=== PATIENT | female | born 2000 | race Caucasian/White ===

== ENCOUNTER 2022-12-19 08:18 | Emergency (ER) | payer OTHER, SELFPAY ==
--- NOTE | 2022-12-19 08:22 | ED.URI ---
HPI - URI/Sore Throat General Chief Complaint: Upper Respiratory Infection Stated Complaint: Sore Throat Discharge Plan Discharge Follow-up/Referrals: UNKNOWN,DOCTOR [Primary Care Provider] -
[2022-12-19 08:28] VITALS: BP 117/73; PULSE 88; RESP 14; TEMP 36.4; O2SAT 100
--- NOTE | 2022-12-19 08:31 | ED.URI ---
HPI - URI/Sore Throat General Chief Complaint: Upper Respiratory Infection Stated Complaint: Sore Throat Source: patient and RN notes reviewed History of Present Illness HPI Narrative: 22 yo F presents to urgent care with complaints of a sore throat and post nasal drip starting yesterday. Pt denies any fevers, chills, ear pain, N/V/D, chest pain, or SOB. Pt has taken Zyrtec and Tylenol at home. Related Data Allergies Allergy/AdvReac Type Severity Reaction Status Date / Time No Known Allergies Allergy Verified 12/19/22 08:32 Review of Systems Review of Systems: CONSTITUTIONAL: Denies fever, chills, or sweats. EYES: Denies visual changes, redness, or discharge. ENT:post nasal drip and sore throat CARDIOVASCULAR: Denies chest pain, palpitations, or edema. RESPIRATORY: Denies cough or dyspnea. GASTROINTESTINAL: Denies abdominal pain, nausea, vomiting, or diarrhea. GENITOURINARY: Denies dysuria or hematuria. SKIN: Denies rash or itching. MUSCULOSKELETAL: Denies back pain, joint pain, or myalgia. NEUROLOGIC: Denies headache, numbness, or weakness. Pertinent positives per HPI. PMFSH Comments At the time of my signature, I reviewed and agree with the nursing past medical, surgical, social, and family history. There is no relevant family history pertinent to the patient complaint. Exam Narrative: GENERAL: This is a well-nourished, well-developed patient, in no apparent distress. HEAD: normocephalic, atraumatic. EYES: Sclera clear/white. Vision is grossly intact. EARS: External ears normal, auditory canals clear and without drainage, TMs normal without perforation. Hearing grossly intact. NOSE: External nose normal with no obvious nasal discharge, nares without redness, no rhinorrhea. THROAT: Mucous membranes moist, posterior pharynx clear. NECK: Neck supple, non-tender without lymphadenopathy, masses or thyromegaly. CARDIOVASCULAR: Regular rate RESPIRATORY: No respiratory distress SKIN: warm, intact with no suspicious lesions or rash, good texture and turgor. NEURO: awake, alert, and oriented to person, place and time. There were no obvious focal neurologic abnormalities. EXTREMITIES: No clubbing, cyanosis, or edema. No joint tenderness, effusion, or edema noted. BACK: Nontender without deformity or crepitus. No flank tenderness. Course Course Level of Care: Express Care Visit Vital Signs Vital signs: Vital Signs Temperature 97.5 F L 12/19/22 08:28 Pulse Rate 88 12/19/22 08:28 Respiratory Rate 14 12/19/22 08:28 Blood Pressure 117/73 12/19/22 08:28 Pulse Oximetry 100 12/19/22 08:28 Oxygen Delivery Room Air 12/19/22 08:28 Temperature 97.5 F L 12/19/22 08:33 Pulse Rate 88 12/19/22 08:33 Respiratory Rate 14 12/19/22 08:33 Blood Pressure 117/73 12/19/22 08:33 Pulse Oximetry 100 12/19/22 08:33 Oxygen Delivery Room Air 12/19/22 08:33 Reviewed MDM - URI/Sore Throat MDM Narrative Medical decision making narrative: After 24 hours on antibiotics throw tooth brush away and start using a new one. Increase your Vitamin C. Do not share drinks. Take Motrin alternating with Tylenol for pain and/or fever alternating every 4 hours. Increase fluids, avoid caffeine. Take a probiotic daily or eat a low sugar yogurt while taking the antibiotic. Follow up with Primary provider if not getting better this week Differential Diagnosis Differential diagnosis: Likely upper respiratory infection, viral infection and pharyngitis Lab Data Attestation: I reviewed the patient's lab results. Critical Care Time Critical Care Time Critical Care Time: No Discharge Plan Discharge Clinical Impression: Pharyngitis Qualifiers: Pharyngitis/tonsillitis etiology: streptococcus Qualified Code(s): J02.0 - Streptococcal pharyngitis Patient Disposition: Home, Self-Care Condition: Stable Instructions: Antibiotic Form, Strep Throat (DC) Additional Instructions: After 24 hours on ant
[2022-12-19 08:33] VITALS: BP 117/73; PULSE 88; RESP 14; TEMP 36.4; O2SAT 100
== END 2022-12-19 08:47 | disposition home or self-care (01) ==
PROVIDERS: Emergency Provider Nurse Practitioner Family
DX: J02.0 Streptococcal pharyngitis (principal)
CPT/HCPCS: 87880; 99203; G0463

== ENCOUNTER 2024-01-03 09:42 | Emergency (ER) | payer OTHER, SELFPAY ==
--- NOTE | ~2024-01-03 | XR_ITS ---
XR knee LT min 4V Ordering provider: JOSLYN Johnson History: . gen pain x 2 days. No injury/trauma . Comparison: None. FINDINGS: BONES: No acute fracture or dislocation. JOINT SPACES: Normal. SOFT TISSUES: Normal. IMPRESSION: No acute osseous abnormality left knee. Reviewed, dictated and finalized at location A.
[2024-01-03 09:47] VITALS: BP 112/67; PULSE 87; RESP 16; TEMP 36.8; O2SAT 99
--- NOTE | 2024-01-03 10:26 | ED.LOWEXIN ---
HPI - Extremity Injury (Lower) General Chief Complaint: Extremity Injury, Lower Stated Complaint: Left Knee Pain Time Seen by Provider: 01/03/24 10:19 Source: patient and RN notes reviewed Mode of arrival: ambulatory Limitations: no limitations History of Present Illness HPI Narrative: Patient presents today complaining of a 2 day history of left knee pain with popping with ambulation. Denies injury or trauma. Denies numbness or tingling. Currently rates her pain 6/10 and has been using a home brace, ice, and Tylenol and ibuprofen with mild short-term relief. Related Data Home Medications Medication Instructions Recorded Confirmed Otc Iron 01/03/24 Allergies Allergy/AdvReac Type Severity Reaction Status Date / Time No Known Allergies Allergy Verified 01/03/24 09:59 Review of Systems Review of Systems: CONSTITUTIONAL: Denies body aches, fever, chills, or sweats. EYES: Denies visual changes, redness, or discharge. ENT: Denies rhinorrhea, congestion, sore throat, or otalgia. CARDIOVASCULAR: Denies chest pain, palpitations, or edema. RESPIRATORY: Denies cough or dyspnea. GASTROINTESTINAL: Denies abdominal pain, nausea, vomiting, or diarrhea. GENITOURINARY: Denies dysuria or hematuria. SKIN: Denies rash, itching, or wounds. MUSCULOSKELETAL: Denies back pain, or myalgia.+ left knee pain NEUROLOGIC: Denies headache, numbness, tingling, or weakness. PSYCH: Denies depression or anxiety. PMFSH Comments At time of signature, I have reviewed and agree with nursing past medical, surgical, social and family history unless otherwise noted. Please see nursing chart for further information. There is no relevant family history pertinent to the presenting complaint Exam Narrative: GENERAL: Well-appearing, well-nourished, and in no acute distress. HEAD: Normocephalic, atraumatic. EYES: EOMI. No redness or drainage. Conjunctivae normal. ENT: Mucous membranes pink and moist. NECK: Normal AROM. CHEST: No respiratory distress. EXTREMITIES: Left knee: Pain with palpation of the patella. Pain with AROM in all directions. No tenderness to the lateral and medial joint line as well as posterior knee. No edema, effusions, ecchymosis, erythema noted. Distal sensation intact. Capillary refill normal. Pedal pulse normal. SKIN: Warm, dry, no rash. Capillary refill normal. Normal skin turgor. NEURO: No focal deficits. Alert and oriented x3. Gait steady. PSYCH: Normal affect. No signs of depression or anxiety. Course Course Level of Care: Express Care Visit Vital Signs Vital signs: Vital Signs Temperature 98.3 F 01/03/24 09:47 Pulse Rate 87 01/03/24 09:47 Respiratory Rate 16 01/03/24 09:47 Blood Pressure 112/67 01/03/24 09:47 Pulse Oximetry 99 01/03/24 09:47 Oxygen Delivery Room Air 01/03/24 09:47 Temperature 98.3 F 01/03/24 09:47 Pulse Rate 87 01/03/24 09:47 Respiratory Rate 16 01/03/24 09:47 Blood Pressure 112/67 01/03/24 09:47 Pulse Oximetry 99 01/03/24 09:47 Oxygen Delivery Room Air 01/03/24 09:47 Reviewed MDM - Extremity Injury (Lower) MDM Narrative Medical decision making narrative: X-ray is negative. Recommend rest, NSAIDs, ice, with PCP or orthopedic follow-up if symptoms do not improve. Patient agrees with plan. Anticipatory guidance given. Differential Diagnosis Differential diagnosis: Likely other (Tendinitis, bursitis, arthritis, ligamentous injury, meniscus injury) Imaging Data Radiologist's impression: ITS Impressions Knee X-Ray 01/03/24 11:10 IMPRESSION: No acute osseous abnormality left knee. Critical Care Time Critical Care Time Critical Care Time: No Discharge Plan Discharge Clinical Impression: Acute pain of left knee Patient Disposition: Home, Self-Care Condition: Stable Instructions: Knee Pain (ED) Additional Instructions: Your x-ray is negative today. Rest, ice, and take an
== END 2024-01-03 11:23 | disposition home or self-care (01) ==
PROVIDERS: Emergency Provider Nurse Practitioner
DX: M25.562 Pain in left knee (principal)
CPT/HCPCS: 73564; 99213; G0463

== ENCOUNTER 2024-03-20 17:28 | Emergency (ER) | payer OTHER, SELFPAY ==
[2024-03-20 17:33] VITALS: BP 110/74; PULSE 119; RESP 16; TEMP 37.7; O2SAT 97
--- NOTE | 2024-03-20 18:17 | ED_ITS ---
HPI - URI/Sore Throat General Chief Complaint: Upper Respiratory Infection Stated Complaint: Cough Time Seen by Provider: 03/20/24 17:50 Source: patient, RN notes reviewed and old records reviewed Mode of arrival: ambulatory Limitations: no limitations History of Present Illness HPI Narrative: 23 year old female who presents to [facility] care with complaints of cough with some intermittent fevers up to 102.6F with some nasal congestion last week with complaints of lingering cough. Patient reports that she hashd some low grade fevers since Saturday with the lingering cough and continues to have some nasal congestion with drainage. Patient reports that cough tends to be worse at night. Patient reports that she has taken some Tylenol and Ibuprofen and has tried some OTC cough medication without improvement. 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 MD elicited complaint: fever, cough, rhinorrhea and nasal congestion Onset (ago): week(s) (1.5 ) Severity: moderate Able to tolerate fluids by mouth: Yes Treatments prior to arrival: acetaminophen, ibuprofen and other (cough syrup) Related Data Home Medications ?Medication ?Instructions ?Recorded ?Confirmed ?Last Taken ?Type Otc Iron 01/03/24 Unknown History Allergies Allergy/AdvReac Type Severity Reaction Status Date / Time No Known Allergies Allergy Verified 01/03/24 09:59 Review of Systems Review of Systems: CONSTITUTIONAL: reports malaise, chills, sweats, or fever. EYES: Denies visual changes, redness, or discharge. ENT: Reports rhinorrhea, congestion, sinus pain, no otalgia and no sore throat. CARDIOVASCULAR: Denies chest pain, palpitations, or edema. RESPIRATORY: Reports lingering cough.? Denies dyspnea. GASTROINTESTINAL: Denies abdominal pain, nausea, vomiting, diarrhea SKIN: Denies rash or itching. MUSCULOSKELETAL: Denies myalgia. NEUROLOGIC: reports some frontal headache. All systems reviewed & are unremarkable except as noted in HPI and below PMFSH Past Medical History Medical History (Updated 03/22/24 @ 21:24 by Rizwana Denis NP) Anemia Social History Social History (Updated 03/22/24 @ 21:26 by Rizwana Denis NP) Smoking status: Never smoker Alcohol intake: current Alcohol use details: social Substance use type: does not use Living arrangements: with family Additional occupation/education comments: works in day care setting Gender identity (if verbalized by the patient): Female Comments At time of signature, agree with nursing past medical, surgical, social and family history. There is no relevant family history pertinent to the presenting complaint Exam 2 Narrative: GENERAL: ill-appearing, well-nourished,pale and in no acute distress. HEAD: Normocephalic EYES: PERRLA, conjunctivae clear ENT: Nares clear, turbinates edematous and erythematous, clear discharge. Mucous membranes moist. TM pearly avila with dull light reflex bilaterally; no tragal tenderness. Oropharynx erythematous without lesions. Tonsils not enlarged and without exudate, no drooling, no hoarseness, no trismus, uvula midline.post nasal drainage NECK: Supple. No lymphadenopathy CHEST: Clear to auscultation, breath sounds equal. No wheezing, rhonchi, rales, or stridor. No respiratory distress, speaks in full sentences.cough noted SAO2 97% on room air HEART: Regular rate and rhythm. No murmur heard. SKIN: Warm, dry, no rash. NEURO: Alert and oriented x3. PSYCH: Normal mood and affect Course Course Emergency Course: Patient is aware of diagnosis, understands and agrees to treatment plan.? Anticipatory guidance given.? Patient agrees to follow-up as directed and is aware of reasons to seek care at the emergency department. Portions of this record may have been created with voice recognition software Level of Care: Express Care Visit Vital Signs Vital signs: Vital Signs Temperature 37.7 C H 03/20/24 17:33 Pulse Rate 119 H 03/20/24 17:33 Respiratory Rate 16 03/20/24 17:33 Blood Pressure 110/74 03/20/24 17:33 Pulse Oximetry 97 03/20/24 17:33 Oxygen Delivery Room Air 03/20/24 17:33 Temperature 37.7 C H 03/20/24 17:33 Pulse Rate 119 H 03/20/24 17:33 Respiratory Rate 16 03/20/24 17:33 Blood Pressure 110/74 03/20/24 17:33 Pulse Oximetry 97 03/20/24 17:33 Oxygen Delivery Room Air 03/20/24 17:33 Reviewed MDM - URI/Sore Throat MDM Narrative Medical decision making narrative: Differential diagnosis considered: Bro virus, strep pharyngitis, allergic rhinitis, upper respiratory tract infection, sinusitis, rhinosinusitis, nasopharyngitis. viral pharyngitis, otitis media, otitis externa, pneumonia, bronchitis, viral cough syndrome, viral syndrome, and influenza.? Exam findings show no acute concerns or changes; patient is non-toxic appearing and is in no distress.? Patient is appropriate for outpatient treatment and follow-up. Differential Diagnosis Differential diagnosis: Likely upper respiratory infection, sinusitis, viral i nfection and other (acute cough) Medical Records Attestation: I reviewed the patient's medical records. Lab Data Attestation: I reviewed the patient's lab results. Critical Care Time Critical Care Time Critical Care Time: No Discharge Plan Discharge Clinical Impression: Sinusitis Qualifiers: Sinusitis location: pansinusitis Chronicity: acute Recurrence: non-recurrent Qualified Code(s): J01.40 - Acute pansinusitis, unspecified Cough Qualifiers: Cough type: acute Qualified Code(s): R05.1 - Acute cough Patient Disposition: Home, Self-Care Condition: Stable Instructions: Antibiotic Form, Sinusitis (ED), Acute Cough (ED) Additional Instructions: Increase fluids especially juices and water Vrpj-wne-aguexef cough and cold medicine of your choice for your symptoms Zyrtec, Claritin,or Gail Steroids as directed--take with food heat to the face 20-30 minutes 4-6 times a day for pain Salt water gargles, throat lozenges or throat sprays as desired Antibiotic as directed--finished the medication If your symptoms persist, change or worsen significantly before you can contact your personal physician then please, without delay, go to the emergency department for further evaluation. Follow-up with PCP in 7-10 days or sooner if needed Follow up with PCP soon in regards to your blood pressure which is elevated above threshold for referral. Blood pressure above 120/80 may indicate pre- hypertension. Patient Language: Citizen Of [place] Prescriptions: New amoxicillin-pot clavulanate 875-125 mg tablet 1 tablet PO Q12H Qty: 20 0RF Rx Instructions: take medication as ordered with food, take with probiotic or eat activa yogurt while on this medication prednisone 20 mg tablet 20 mg PO BID Qty: 10 0RF No Action Otc Iron Follow-up/Referrals: PHYSICIAN,ECONOMIST RESEARCH ASSISTANT [Primary Care Provider] - Time of Disposition: 18:22 Quality Hondo Coma Scale Eyes: Open Verbal: Oriented and Alert Motor: Follows Commands Hondo Coma Total Score: 15
--- OUTSIDE RECORDS SUMMARY | 2024-03-24 10:38 | XMS_ITS | Referral Summary ---
Author Organization [facility] [address] Address [address] [place] [address] Phone Care Team Providers Care Linux Administrator Name Role Phone No, Physician Primary Care Provider [phone] Allergies No known active allergies Medications silver sulfadiazine (SILVADENE, SSD) 1 % cream Apply topically daily Active Active Problems Problem Noted Date Diagnosed Date Annual physical exam 07/27/2022 Assessment & Plan (07/27/2022 1:32 PM CDT): Doing well. BMI:23 Routine labs ordered - Varicella titer Preventative Screening Due: N/a Dietary and exercise recommendations given today. Recommend exercise at least 30 minutes moderate to vigorous exercise and some strength training most days of the week. (minimum 150 minutes weekly) Discussed MyPlate recommendations and increasing fruits and vegetables Age appropriate counseling provided - Safe sex practices, Seat belt use, alcohol/drug avoidance Vaccines due - HPV RTC annually for f/u Social History Tobacco Use Types Packs/Day Years Used Date Smoking Tobacco: Never Smokeless Tobacco: Never Tobacco Cessation:Counseling Given: Not Answered AUDIT-C Answer Date Recorded Q1: How often do you have a drink containing alc ohol? Never 07/27/2022 Average Number of Drinks Not on file 023 Frequency of Binge Drinking Not on file 07/08 PHQ-2 Answer Date Recorded PHQ-2 Total Score (If total score is 3 or more points, staff should administer the PHQ-9) 0 07/27/2022 Personal Safety Answer Date Recorded Getting School Help Needed Not on file 06/08 Comments Unknown Sex and Gender Information Value Date Recorded Sex Assigned at Not on file Legal Sex Female 1:09 PM CDT Gender Identity Not on file Sexual Orientation Not on file Last Filed Vital Signs Vital Sign Reading Time Taken Comments Blood Pressure 102/80 07/27/2022 1:09 PM CDT Pulse 91 07/27/2022 1:09 PM CDT Temperature 36.4 ??C (97.5 ??F) 07/27/2022 1:09 PM CD T Respiratory Rate 16 07/27/2022 1:09 PM CDT Oxygen Saturation 99% 07/27/2022 1:09 PM CDT Inhaled Oxygen Concentration - - Weight 58.8 kg (129 lb 9.6 oz) 07/27/2022 1:09 P M CDT Height 160 cm (5' 3 ) 07/27/2022 1:09 PM CDT Body Mass Index 22.96 07/27/2022 1:09 PM CDT Plan of Treatment Not on file Insurance [facility] Care Teams Linux Administrator Relationship Specialty Start Date End Date No, Physician PCP - General 06/19/22
--- OUTSIDE RECORDS SUMMARY | 2024-03-24 10:38 | XMS_ITS | Encounter Summary ---
Author Organization [facility] Address [address] [place] [id number] Care Team Providers Care Power Line Installer Name Role Phone No, Physician Primary Care Provider [phone] Reason for Visit * Reason Comments New Patient Encounter Details Date Type Department Care Team (Late st Contact Info) Description 07/27/2022 1:00 PM CDT Office Visit [facility] [address] [place] [id number] Katherine Meléndez MD [address] [address] Annual physical exam (Primary Dx); Immunity status testing Social History Tobacco Use Types Packs/Day Years [...] staff should administer the PHQ-9) 0 07/27/2022 Comments Unknown Sex and Gender Information Value Date Recorded Sex Assigned at Not on file Legal Sex Female 1:09 PM CDT Gender Identity Not on file Sexual Orientation Not on file documented as of this encounter Last Filed Vital Signs Vital Sign Reading [...] Mass Index 22.96 07/27/2022 1:09 PM CDT documented in this encounter Patient Instructions * Patient Instructions* Katherine Meléndez MD - 07/27/2022 1:00 PM CDT Order varicella titer Vaccines - Meningococcal B, HPV documented in this encounter Progress Notes * Katherine Meléndez MD - 07/27/2022 1:00 PM CDT Images from the original note were not included. Patient ID: Bandar Bonds is a 21 y.o. female. Chief Complaint. Chief Complaint Patient presents with New Patient HPI. Patient is a 21 y.o. female HPI Patient is here for annual wellness check. Chronic issues:None Tobacco use: None Alcohol: None Diet:Mostly eats what she wants. Water and soda. Exercise: None Mammo:N/A Pap:N/A C scope:N/A Patient has never been sexually active History reviewed. No pertinent past medical history. History reviewed. No pertinent surgical history. No Known Allergies Social History Tobacco Use Smoking status: Never Smokeless tobacco: Never Substance and Sexual Activity Drug use: Not Currently Sexual activity: None Alcohol Use: Not At Risk (07/27/2022) AUDIT-C Frequency of Alcohol Consumption: Never Average Number of Drinks: Not on file Frequency of Binge Drinking: Not on file History reviewed. No pertinent family history. Current Medications: Outpatient Encounter Medications as of 07/27/2022 Medication Sig Dispense Refill silver sulfadiazine (SILVADENE, SSD) 1 % cream Apply topically daily No facility-administered encounter medications on file as of 07/27/2022. Review of Systems Constitutional: Negative for chills and fever. HENT: Negative for hearing loss and sore throat. Eyes: Negative for visual disturbance. Respiratory: Negative for shortness of breath and wheezing. Cardiovascular: Negative for chest pain. Gastrointestinal: Negative for abdominal pain, constipation, diarrhea, nausea and vomiting. Genitourinary: Negative for dysuria. Skin: Negative for rash. Neurological: Negative for headaches. BP 102/80 (BP Location: Left arm, Patient Position: Sitting) Pulse 91 Temp 36.4 ??C (97.5 ??F) Resp 16 Ht 160 cm (5' 3 ) Wt 58.8 kg (129 lb 9.6 oz) SpO2 99% BMI 22.96 kg/m?? Physical Exam Vitals reviewed. Constitutional: General: She is not in acute distress. Appearance: Normal appearance. HENT: Head: Normocephalic and atraumatic. Cardiovascular: Rate and Rhythm: Normal rate and regular rhythm. Pulses: Normal pulses. Heart sounds: Normal heart sounds. No murmur heard. Pulmonary: Breath sounds: Normal breath sounds. No wheezing. Musculoskeletal: Cervical back: Normal range of motion and neck supple. Skin: General: Skin is warm and dry. Neurological: Mental Status: She is alert. Psychiatric: Mood and Affect: Mood normal. No results found for any previous visit. There is no immunization history on file for this patient. Spent up to (25 mins) preparing to see the patient (e.g., review of test), obtaining and or reviewing separately obtained history, performing a medically appropriate exam examination and evaluation, counseling and educating the patient, ordering medications, tests, along with documenting clinical in formation in the electronic health record, independently interpreting results and communicating results to the patient. RTC in ( 12 months) Assessment & Plan: Diagnoses and all orders for this visit: Annual physical exam (Primary) Assessment & Plan: Doing well. BMI:23 Routine labs ordered - [...] due - HPV RTC annually for f/u Katherine Meléndez MD documented in this encounter Miscellaneous Notes * Assessment & Plan Note - Katherine Meléndez MD - 07/27/2022 1:30 PM CDT Associated Problem(s): Annual physical exam Doing well. BMI:23 Routine labs ordered - [...] due - HPV RTC annually for f/u documented in this encounter Plan of Treatment Not on file documented as of this encounter Visit Diagnoses Diagnosis Annual physical exam- Primary Routine general medical examination at a health care facility Immunity status testing Antibody response examination documented in this encounter Historical Medications * This list may reflect changes made after this encounter. silver sulfadiazine (SILVADENE, SSD) 1 % cream Apply topically daily added in this encounter Care Teams Power Line Installer Relationship Specialty Start Date End Date No, Physician PCP - General 06/19/22 documented as of this encounter
--- OUTSIDE RECORDS SUMMARY | 2024-03-24 10:38 | XMS_ITS | Encounter Summary ---
Author Organization [facility] Address [address] [place] [address] Phone Care Team Providers Care Building Illuminating Engineer Name Role Phone Gris Hamilton Primary Care Pro vider Reason for Referral * PT/OT/ST (Routine) - Canceled Specialty Diagnoses / Procedures Referred By Contandrew t Referred To Contact Physical Therapy Diagnoses Left knee pain, unspecified chronicity Gris Hamilton, WALLY [address] [place] [address] Phone: tel: fax: Referral ID Status Reason Start Date Expiration Date V isits Requested Visits Authorized [id number] Canceled 01/06/2024 50 50 Scheduling Instructions Reason for Visit * Reason Comments New Patient Preventive Care Knee Pain Started saturday wa s popping , urgent care Saturday , [facility] facility Encounter Details Date Type Department Care Team (Late st Contact Info) Description 01/06/2024 2:15 PM CDT Office Visit [facility] - Internal Medicine - [place] [address] [place] [address] Gris Hamilton PAC [address] [place] [address] Left knee pain, unspecified chronicity (Primary Dx); Well adult exam Discharge Disposition: Discharged to home or Selfcare Social History Tobacco Use Types Packs/Day Years Used Date Smoking Tobacco: Never Smokeless Tobacco: Never Tobacco Cessation:Counseling Given: No Alcohol Use Standard Drinks/Week Comments Not Currently 0 (1 standard drink = 0.6 oz pur e alcohol) [facility] Utilities Answer Date Recorded In the past 12 months has th e electric, gas, oil, or water company threatened to shut off services in your home? No 01/06/2024 Social Connection and Isolat ion Panel [NHANES] Answer Date Recorded In a typical week, how many times do you talk on the phone with family, friends, or neighbors? Once a week 01/06/2024 How often do you get togethe r with friends or relatives? More than three times a week 01/06/2024 How often do you attend chur ch or gnosticist services? Never 01/06/2024 Do you belong to any clubs o r organizations such as pentecostalism groups, unions, fraternal or athletic groups, or school groups? No 01/06/2024 How often do you attend meet ings of the clubs or organizations you belong to? Never 01/06/2024 Are you , , di vorced, , never , or living with a partner? Never 01/06/2024 AUDIT-C Answer Date Recorded Q1: How often do you have a drink containing alcohol? Never 01/06/2024 Q2: How many drinks containi ng alcohol do you have on a typical day when you are drinking? Patient does not drink Q3: How often do you have si x or more drinks on one occasion? Never 01/06/2024 Overall Financial Resource Strain (CARDIA) Answe r Date Recorded How hard is it for you to pa y for the very basics like food, housing, medical care, and heating? Not hard at all 01/06/2024 PHQ-2 Answer Date Recorded Total Score - Questions 1-9 0 12/09 [facility] [place] of Occupat ional Health - Occupational Stress Questionnaire Answer Date Recorded Do you feel stress - tense, restless, nervous, or anxious, or unable to sleep at night because your mind is troubled all the time - these days? Not at all 01/06/2024 Exercise Vital Sign Answer Date Recorde d On average, how many days pe r week do you engage in moderate to strenuous exercise (like a brisk walk)? 0 days Minutes of Exercise per Session Not on file 01/06/2024 Hunger Vital Sign Answer Date Recorded Within the past 12 months, y ou worried that your food would run out before you got the money to buy more. Never true 01/06/20 Within the past 12 months, t he food you bought just didn't last and you didn't have money to get more. Never true 01/06/2024 PRAPARE - Transportation Answer Date Re corded In the past 12 months, has l ack of transportation kept you from medical appointments or from getting medications? No 12/09 In the past 12 months, has l ack of transportation kept you from meetings, work, or from getting things needed for daily living? No 01/06/2024 Housing Stability Vital Sign Answer Farshad e Recorded In the last 12 months, was t here a time when you were not able to pay the mortgage or rent on time? Patient declined 01/06/20 In the past 12 months, how m any times have you moved where you were living? 0 01/06/2024 At any time in the past 12 m [facility], were you homeless or living in a senior living (including now)? 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 Gender Identity Not on file Sexual Orientation Not on file documented as of this encounter Last Filed Vital Signs Vital Sign Reading Time Taken Comments Blood Pressure 104/70 01/06/2024 2:39 PM CDT Pulse 88 01/06/2024 2:39 PM CDT Temperature 36.6 ??C (97.8 ??F) 01/06/2024 2:39 PM CD T Respiratory Rate 12 01/06/2024 2:39 PM CDT Oxygen Saturation 99% 01/06/2024 2:39 PM CDT Inhaled Oxygen Concentration - - Weight 63.5 kg (140 lb) 01/06/2024 2:39 PM CDT Height - - Body Mass Index 27.34 07/28/2022 5:23 PM CDT documented in this encounter Functional Status * Audit-C Score Answer Date of Assessment Author 0 01/06/2024 1:56 PM CDT [facility] [place] [facility] * Within the last year, have you been humiliated or emotionally abused in other ways by your partner or ex-partner? Answer Date of Assessment Author No 01/06/2024 1:56 PM CDT [facility], [facility] [place] [facility] * Within the last year, have you been afraid of your partner or ex-partner? Answer Date of Assessment Author No 01/06/2024 1:56 PM CDT [facility], [facility] [place] [facility] * Within the last year, have you been raped or forced to have any kind of sexual activity by your partner or ex-partner? Answer Date of Assessment Author No 01/06/2024 1:56 PM CDT [place], [facility] [place] [facility] * Within the last year, have you been kicked, hit, slapped, or otherwise physically hurt by your partner or ex-partner? Answer Date of Assessment Author No 01/06/2024 1:56 PM CDT [facility], [facility] [place] [facility] * Q1: How often do you have a drink containing alcohol? Answer Date of Assessment Author Never 01/06/2024 1:56 PM CDT [facility], [facility] [place] [facility] * Q2: How many drinks containing alcohol do you have on a typical day when you are drinking? Answer Date of Assessment Author Patient does not drink 01/06/2024 1:56 PM CDT [facility], [facility] [place] [facility] * Q3: How often do you have six or more drinks on one occasion? Answer Date of Assessment Author Never 01/06/2024 1:56 PM CDT [facility], [facility] [place] [facility] * Question Answer Date of Assessment Author Little interest or pleasure in doing things Not at all 01/06/2024 2:38 PM CDT Kate Kate RMA Feeling down, depressed, or hopeless Not at all 01/06/2024 2:38 PM CDT Kate Kate RMA * Over the past 2 weeks, how often have you been bothered by any of the following problems? Question Answer Date of Assessment Author Patient Health Questionnaire -2 Score 0 01/06/2024 2:38 PM CDT Kate Kate RMA documented as of this encounter Patient Instructions * Attachments The following attachments cannot be sent through Care Everywhere. * Preventive Care 21-39 Years Old Female (Nigerian) documented in this encounter Progress Notes * Kate Kate RMA - 01/06/2024 2:15 PM CDT Bandar Bonds, 23 y.o., female is here for New Patient, Preventive Care, and Knee Pain (Startedsaturday was popping , urgent care Saturday , [facility] facility ) Medication Refills: Patient reports/denies need for medication refills. Orders Pended: no Requested Prescriptions No prescriptions requested or ordered in this encounter Home Medications Medication Sig Start Date End Date Taking? Authorizing Provider Ferrous Sulfate (IRON PO) Take by mouth. Yes Provider, MD Uli There are no discontinued medications. I have reviewed the home medication list with the patient and have reconciled discrepancies. The list is accurate to the best of my knowledge. Smoking Status: Social History Tobacco Use Smoking status: Never Smokeless tobacco: Never Vaping Use Vaping status: Never Used Substance Use Topics Alcohol use: Not Currently Drug use: Never Smoking Cessation Counseling Given: no Health Care Maintenance: Health Maintenance Due Topic Date Due Hepatitis C Virus (HCV) Screening Never done Hepatitis B Immunization (3 of 3 - 3-dose series) 07/13/2003 Meningococcal B Immunization (1 of 2 - Patient Seeks Protection) Never done Influenza Immunization (1) 12/08/2023 SARS-COV-2 Immunization ( season) Never done Pap Smear 11/16/2023 Orders Pended: no The following BPA's have been addressed with the patient today: BMI, Smoking, Depression, Fall Risk, and Nutrition * Gris Hamilton PAC - 01/06/2024 2:15 PM CDT Chief Complaint: Chief Complaint Patient presents with New Patient Preventive Care Knee Pain Started saturday was popping , urgent care Saturday , [facility] facility Assessment/Plan: Diagnoses and all orders for this visit: Left knee pain, unspecified chronicity - PHYSICAL THERAPY REFERRAL; Future Well adult exam - CMP (COMPREHENSIVE METABOLIC PANEL); Future - COMPLETE BLOOD COUNT (CBC) WITH DIFF; Future - HEMOGLOBIN A1C W/ ESTIMATED GLUCOSE; Future - LIPID PANEL; Future - THYROID STIMULATING HORMONE (TSH); Future Other orders - Ferrous Sulfate (IRON PO); Take by mouth. PT eval and treat Get Froylan xray results NSAIDS as needed; advised Aleve Ok to continue brace PRN Avoid aggravating activities F/u in 4-6 wks after PT Future consideration for MRI or ortho Preventive care d/w pt Labs when fasting Yearly well exams Subjective: Ms. Bandar Bonds is a 23 y.o. female here today for above. 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 VITAL SIGNS: BP Readings from Last 3 Encounters: 01/06/24 104/70 07/28/22 113/74 07/25/22 111/70 Wt Readings from Last 3 Encounters: 01/06/24 140 lb (63.5 kg) 07/28/22 139 lb 15.9 oz (63.5 kg) (69%, Z= 0.51)* 07/25/22 140 lb (63.5 kg) (69%, Z= 0.51)* * Growth percentiles are based on [facility] (Girls, 2-20 Years) data. Vitals: 01/06/24 1439 BP: 104/70 BP Location: Left Arm BP Position: Sitting BP Cuff Size: Regular Pulse: 88 Resp: 12 Temp: 97.8 ??F (36.6 ??C) TempSrc: Temporal SpO2: 99% Weight: 140 lb (63.5 kg) Body mass index is 27.34 kg/m??. PHYSICAL EXAM: Physical Exam Vitals reviewed. Constitutional: Appearance: Normal appearance. HENT: Head: Normocephalic and atraumatic. Right Ear: Tympanic membrane normal. Left Ear: Tympanic membrane normal. Nose: Nose normal. Mouth/Throat: Mouth: Mucous membranes are moist. Eyes: Extraocular Movements: Extraocular movements intact. Cardiovascular: Rate and Rhythm: Regular rhythm. Heart sounds: Normal heart sounds. Pulmonary: Breath sounds: Normal breath sounds. Abdominal: General: Bowel sounds are normal. Palpations: Abdomen is soft. Musculoskeletal: General: Normal range of motion. Comments: Pain with ROM of the L knee medial, lateral, and patellar Normal strength APRIL DTRs 2/4 Sens grossly intact No deformity noted Skin: General: Skin is warm. Neurological: General: No focal deficit present. Mental Status: She is alert. Mental status is at baseline. Psychiatric: Mood and Affect: Mood normal. Labs/Studies Reviewed: No results found for: WBC , HEMOGLOBIN , HEMATOCRIT , PLATELETCNT , MCV No results found for: SODIUM , POTASSIUM , CHLORIDE , CO2VEN , ANIONGAP , GLUCOSE , BUN , CREATININE , BCRATIO8 , TOTALPROTEIN , ALBUMIN , AGRATIO , CALCIUM , TBIL , SGOTAST , SGPTALT , ALKALINEPHO , GFRNA , GFRA No results found for: TSH No results found for: HGBA1C No results found for: CHOLESTEROL , TRIGLYCRIDES , HDLCHOLESTE , LDL No results found for: PSASCREEN , PSA , PSAFREE , PSAPCNTFREE , PSATOTAL @MAMMOFINDINGS@ No results found. Recent Procedure Details No resulted procedures found. FOLLOWUP: Follow-up Information Return in about 4 weeks (around 02/03/2024) for Acute symptom check. LOS Today OFFICE/OP NEW LVL 4 MOD MDM/45-59 MIN Past medical, surgical, social and family history has been reviewed and updated as necessary. Medications and allergies has been reviewed and updated. I discussed all new medications and potential side effects or risks associated with them. Patient is to contact our office with any concerns. Patient instructions and educational materials were given to the patient. Patient (or patient territory sales representative) demonstrates verbal understanding of instructions given. Patient should follow up with their PCP for general health maintenance needs. Patient should contact our office if their problems persist or call 911/go the to ER if issues become more persistent. If any referrals have been made, patient should contact our office with in 3-5 days if they have not heard anything from our referral team or the referring physician. documented in this encounter Plan of Treatment Scheduled Orders Name Type Priority Associated Diagnoses Orde r Schedule CMP (COMPREHENSIVE METABOLIC PANEL) Lab Routine Well adult exam Expected: 02/05/2024 (Approximate), Expires: 04/07/2024 COMPLETE BLOOD COUNT (CBC) WITH DIFF Lab Routine Well adult exam Expected: 02/05/2024 (Approximate), Expires: 04/07/2024 HEMOGLOBIN A1C W/ ESTIMATED GLUCOSE Lab Routine Well adult exam Expected: 02/05/2024 (Approximate), Expires: 04/07/2024 LIPID PANEL Lab Routine Well adult exam Expected: 02/05/2024 (Approximate), Expires: 04/07/2024 THYROID STIMULATING HORMONE (TSH) Lab Routine Well adult exam Expected: 02/05/2024 (Approximate), Expires: 04/07/2024 Scheduled Referrals Name Type Priority Associated Diagnoses Orde r Schedule PHYSICAL THERAPY REFERRAL Outpatient Referral Routine Left knee pain, unspecified chronicity Expected: 01/06/2024, Expires: 01/05/2025 documented as of this encounter Visit Diagnoses Diagnosis Left knee pain, unspecified chronicity- Primary Well adult exam Routine general medical examination at a health care facility documented in this encounter Additional Health Concerns Assessment Noted Time PHQ-9 Depression Total Score: 0 01/06/20 24 2:38 PM CDT documented as of this encounter Care Teams Building Illuminating Engineer Relationship Specialty Start Date End Date Gris Hamilton PAC [address] [place] [address] PCP - General Physician Bankruptcy Paralegal 01/06/24 documented as of this encounter
--- OUTSIDE RECORDS SUMMARY | 2024-03-24 10:38 | XMS_ITS | Clinical Summary ---
Author Organization [facility] [address] Address [address] [place] [address] Phone Care Team Providers Care Customer Account Representative Name Role Phone No, Physician Primary Care Provider [phone] Allergies No known active allergies Medications silver [...] on file Sexual Orientation Not on file Obstetrics History Last Filed Vital Signs Vital Sign Reading [...] 07/27/2022 1:09 PM CDT Plan of Treatment Health Maintenance Due Date Last Done Comments Cervical Cancer Screening 2002 Hepatitis C Screening 2002 Varicella Vaccines (1 of 2 - 13+ 2-dose series) 11/16/2015 HPV Vaccines (1 - 3-dose series) 2017 Meningococcal B Vaccine (1 o f 2 - Patient Seeks Protection) 2018 Hepatitis B Screening 2020 Depression Screening 07/28/2023 07/27/2022 Regular Well Visit/Exam 18-64 07/28/2023 07/27/2022 Influenza Vaccine (#1) 2023 DTaP/Tdap/Td Vaccine (2 - Td or Tdap) 07/25/2032 07/25/2022 Meningococcal Vaccine Aged Out No johanna jamil eligible based on patient's age to complete this topic Pneumococcal vaccine <65 Aged Out No longer eligible based on patient's age to complete this topic Insurance [facility] Care Teams Customer Account Representative Relationship Specialty Start Date End Date No, Physician PCP - General 06/19/22
--- OUTSIDE RECORDS SUMMARY | 2024-03-24 10:38 | XMS_ITS | Encounter Summary ---
Author Organization [employer] Care Team Providers Care Program Paraprofessional Name Role Phone Gris Hamilton PAC Primary Care Pro vider Encounter Details Date Type Department Care Team (Latest Contact Info) Description 01/06/2024 Travel Social History Tobacco Use Types Packs/Day Years Used Date Smoking Tobacco: Never Smokeless Tobacco: Never Alcohol Use Standard Drinks/Week Comments Not Currently 0 (1 standard drink = 0.6 oz pur e alcohol) [facility] Utilities Answer Date Recorded In the past 12 months has [employer], gas, oil, or water [employer] threatened to shut off services in your [...] 01/06/2024 How often do you attend chur or muslim services? Never 01/06/2024 Do you belong to any clubs o r organizations such as restoration groups, unions, fraternal or athletic groups, or [...] you are drinking? Patient does not drink 09/30/202 4 Q3: How often do you have si x or more drinks on one occasion? Never 01/06/2024 Overall Financial Resource Strain (CARDIA) Answe r Date Recorded How hard is it for you to pa y for the very basics like food, housing, medical care, and heating? Not hard at all 01/06/2024 PHQ-2 Answer Date Recorded Total Score - Questions 1-9 0 12/09 [facility] of Occupat ional Health - Occupational Stress [...] any time in the past 12 m [facility], were you homeless or living in a skilled nursing (including now)? 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 Answer Date of Assessment Author No 01/06/2024 1:56 PM CDT [facility], [facility] [place] [facility] * Within the last year, have you been afraid of your partner or ex-partner? Answer Date of Assessment Author No 01/06/2024 1:56 PM CDT [facility], [facility] [place] [facility] * Within the last year, have you been raped or forced to have any kind of sexual activity by your partner or ex-partner? Answer Date of Assessment Author No 01/06/2024 1:56 PM CDT [facility], [facility] [place] [facility] * Within the last year, have you been kicked, hit, slapped, or otherwise physically hurt by your partner or ex-partner? Answer Date of Assessment Author No 01/06/2024 1:56 PM CDT [facility], [facility] [place] [facility] * Q1: How often do you have a drink containing alcohol? Answer Date of Assessment Author Never 01/06/2024 1:56 PM CDT [facility], [facility] [place] [facility] * Q2: How many drinks containing alcohol do you have on a typical day when you are drinking? Answer Date of Assessment Author Patient does not drink 01/06/2024 1:56 PM CDT [facility], [facility] [place] [facility] * Q3: How often do you have six or more drinks on one occasion? Answer Date of Assessment Author Never 01/06/2024 1:56 PM CDT [facility], [facility] [place] [facility] * Question Answer Date of Assessment [...] Kate RMA documented as of this encounter Plan of Treatment Not on file documented as of this encounter Visit Diagnoses Not on filedocumented in this encounter Additional Health Concerns Assessment Noted Time PHQ-9 Depression Total Score: 0 01/06/20 2:38 PM CDT documented as of this encounter Care Teams Program Paraprofessional Relationship Specialty Start Date End Date Gris Hamilton, WALLY [address] [place] [address] PCP - General Physician Manager Action 01/06/24 documented as of this encounter
--- OUTSIDE RECORDS SUMMARY | 2024-03-24 10:38 | XMS_ITS | Encounter Summary ---
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 No / Unsure 07/28/2022 5:24 PM CDT documented as of this encounter Plan of Treatment Not on file documented as of this encounter Visit Diagnoses Not on filedocumented in this encounter Care Teams Warehouse Trainer Relationship Specialty Start Date End Date Provider, None ID PCP - General 05/01/22 01/05/24 documented as of this encounter
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
--- OUTSIDE RECORDS SUMMARY | 2024-03-24 10:38 | XMS_ITS | Encounter Summary ---
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 No / Unsure 05/01/2022 6:04 PM RATE REVIEWER documented as of this encounter Plan of Treatment Not on file documented as of this encounter Visit Diagnoses Not on filedocumented in this encounter Care Teams Laboratory Sample Carrier Relationship Specialty Start Date End Date Provider, None [place] PCP - General 05/01/22 01/05/24 documented as of this encounter
--- OUTSIDE RECORDS SUMMARY | 2024-03-24 10:38 | XMS_ITS | Encounter Summary ---
Author Organization [facility] Address [address] [place] [address] Phone Care Team Providers Care Printed Circuit Boards Router Name Role Phone Provider, None Primary Care Provider Unavailabl e Reason for Visit * Reason Onset Date Comments New Patient 01/03/2024 Encounter Details Date Type Department Care Team ([facility] st Contact Info) Description 01/03/2024 Telephone [facility] [address] [place] [address] Provider, None [place] New Patient Social History Tobacco Use Types Packs/Day Years Used Date Smoking Tobacco: Never Smokeless Tobacco: Never Comments No Sex and Gender Information Value Date Recorded Sex Assigned at Not on file 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 Gender Identity Not on file Sexual Orientation Not on file documented as of this encounter Miscellaneous Notes * Telephone Encounter - Charla Ramirez - 01/03/2024 3:47 PM CDT Appointment scheduled * Telephone Encounter - Elise Ramirezricia - 01/03/2024 3:46 PM CDT ----- Message from Sheree sent at 01/03/2024 3:21 PM CDT ----- Regarding: New Patient New [facility] Primary Provider Request Insurance of patient: [facility] Name of person calling: Bandar Relationship to patient: Self Preferred phone number: [phone] Patient reason for appointment/any current symptoms: Est Care/ need urgent care f/u appointment Other information (including need for donor relations manager): None documented in this encounter Plan of Treatment Not on file documented as of this encounter Visit Diagnoses Not on filedocumented in this encounter Care Teams Printed Circuit Boards Router Relationship Specialty Start Date End Date Provider, None [place] PCP - General 05/01/22 01/05/24 documented as of this encounter
--- OUTSIDE RECORDS SUMMARY | 2024-03-24 10:38 | XMS_ITS | Encounter Summary ---
Author Organization [facility] Address [address] [place] [address] Phone Care Team Providers Care Afternoon Nanny Name Role Phone Provider, None Primary Care Provider Unavailabl e Reason for Visit * Reason Comments Sore Throat Nasal Congestion Encounter Details Date Type Department Care Team (Latest Contact Info) Description 06/19/2022 3:40 PM CDT Urgent Care Visit [facility] [place] [address] [place] [address] Amy Caraballo, TELEMETRY MONITOR, KARDEX CLERK [address] [place] [address] Upper respiratory tract infection, unspecified type (Primary Dx) Discharge Disposition: Discharged to home or Selfcare Social History Tobacco Use Types Packs/Day Years Used Date Smoking Tobacco: Never Smokeless Tobacco: Never Comments No Sex and Gender Information Value Date Recorded Sex Assigned at Not on file Legal Sex Female 6:00 PM SVP [employer] Gender Identity Not on file Sexual Orientation Not on file COVID-19 Exposure Response Date Recorded In the last 10 days, have yo u been in contact with someone who was confirmed or suspected to have Coronavirus/COVID-19? No / Unsure 06/19/2022 1:56 PM CDT documented as of this encounter Last Filed Vital Signs Vital Sign Reading Time Taken Comments Blood Pressure 100/72 06/19/2022 3:36 PM CDT Pulse 73 06/19/2022 3:36 PM CDT Temperature 37.4 ??C (99.3 ??F) 06/19/2022 3:36 PM CD T Respiratory Rate 18 06/19/2022 3:36 PM CDT Oxygen Saturation 98% 06/19/2022 3:36 PM CDT Inhaled Oxygen Concentration - - Weight 63 kg (139 lb) 06/19/2022 3:36 PM CDT Height - - Body Mass Index 24.62 05/01/2022 6:06 PM SVP [employer] documented in this encounter Patient Instructions * Patient Instructions* Amy Caraballo APRN, CNP - 06/19/2022 3:40 PM CDT Symptoms are most likely caused from a virus. Antibiotics are not used to treat viruses. Viruses can take up to 7-14 to resolve. Conservative care is recommended at this time: Rest as needed Tylenol or ibuprofen as needed for low grade fevers or body aches. Do not exceed the recommended daily dosage as noted on the package/bottle. Increase fluid intake: this can include water, tea, Gatorade, or Pedialyte. Avoid milk and juice asthese may increase loose stools. Over the counter cough Supressant may be used as may cough drops and throat lozenges. Avoid any over the counter cold medication with a decongestant if you have high blood pressure. If in doubt, ask the pharmacist for help. Cool mist humidifier at night in the bedroom will help with cough and congestion. Follow up with PCP if no improvement in the symptoms, or symptoms worsen. * Attachments The following attachments cannot be sent through Care Everywhere. * Upper Respiratory Infection Adult Ciiw-io-Bjcs (Moroccan) documented in this encounter Progress Notes * Iris Wilkinson RMA - 06/19/2022 3:40 PM CDT Bandar Bonds complains of Pt is being seen for low fever, sore throat, nasal congestion for yesterday. Today's Review of Systems Constitutional: Positive for fever. HENT: Positive for congestion and sore throat. * Amy Caraballo APRN, CNP - 06/19/2022 3:40 PM CDT HPI: Bandar Bonds is a 21 y.o. female in the prompt care today for sore throat, nasal congestion, runny nose, and a temp of 99.8. Her symtpoms have resolved with the exception of a stuffy nose and a slight temp. Symptoms started yesterday Severity of symptoms is mild Symptoms are has slightly improved Patient is currently taking over the counter cold and sinus for the symptoms. Smoker: No No pertinent Past, family, or social history was noted There is no problem list on file for this patient. ROS: Review of Systems Constitutional: Positive for fever. Negative for chills. HENT: Positive for congestion, rhinorrhea and sore throat (resolved). Negative for ear pain, postnasal drip, sinus pressure, sinus pain and sneezing. Eyes: Negative for pain and visual disturbance. Respiratory: Negative for cough and shortness of breath. Cardiovascular: Negative for chest pain and palpitations. Gastrointestinal: Negative for abdominal pain and vomiting. Genitourinary: Negative for dysuria and hematuria. Musculoskeletal: Negative for arthralgias and back pain. Skin: Negative for color change and rash. Neurological: Negative for seizures and syncope. All other systems reviewed and are negative. PE: BP 100/72 (BP Location: Right Arm, BP Position: Sitting, BP Cuff Size: Regular) Pulse 73 Temp 99.3 ??F (37.4 ??C) (Temporal) Resp 18 Wt 139 lb (63 kg) SpO2 98% BMI 24.62 kg/m?? Physical Exam Vitals and nursing note reviewed. Constitutional: Appearance: Normal appearance. She is normal weight. HENT: Right Ear: Tympanic membrane, ear canal and external ear normal. Left Ear: Tympanic membrane, ear canal and external ear normal. Nose: Nose normal. Mouth/Throat: Mouth: Mucous membranes are moist. Pharynx: Oropharynx is clear. Posterior oropharyngeal erythema present. Eyes: Conjunctiva/sclera: Conjunctivae normal. Cardiovascular: Rate and Rhythm: Normal rate and regular rhythm. Pulses: Normal pulses. Heart sounds: Normal heart sounds. Pulmonary: Effort: Pulmonary effort is normal. No respiratory distress. Breath sounds: Normal breath sounds. Musculoskeletal: Cervical back: Neck supple. Lymphadenopathy: Cervical: No cervical adenopathy. Skin: General: Skin is warm and dry. Neurological: Mental Status: She is alert. ASSESSMENT/PLAN: Diagnoses and all orders for this visit: Upper respiratory tract infection, unspecified type - POCT GROUP A STREP SCREEN RAPID - POCT SARS ANTIGEN AD Patient Instructions Symptoms are most likely caused from a virus. Antibiotics are not used to treat viruses. Viruses can take up to 7-14 to resolve. Conservative care is recommended at this time: Rest as needed Tylenol or ibuprofen as needed for low grade fevers or body aches. Do not exceed the recommended daily dosage as noted on the package/bottle. Increase fluid intake: this can include water, tea, Gatorade, or Pedialyte. Avoid milk and juice asthese may increase loose stools. Over the counter cough Supressant may be used as may cough drops and throat lozenges. Avoid any over the counter cold medication with a decongestant if you have high blood pressure. If in doubt, ask the pharmacist for help. Cool mist humidifier at night in the bedroom will help with cough and congestion. Follow up with PCP if no improvement in the symptoms, or symptoms worsen. Chief complaint and all history documented by ancillary staff were reviewed and verified, with additions or corrections, as appropriate. * Iris Wilkinson RMA - 06/19/2022 3:40 PM CDT Per order of Amy Caraballo APRN, CNP throat swab collected for POCT Strep A. Patient tolerated well. Per order of Amy Caraballo APRN, CNP bilateral nasal swab collected for POCT COVID. Patient tolerated well. documented in this encounter Plan of Treatment Not on file documented as of this encounter Procedures Procedure Name Priority Date/Time Associated Diagnosis Comments POCT GROUP A STREP SCREEN RAPID Routine 06/19/2022 4:21 PM CDT Upper respiratory tract infection, unspecified type POCT SARS ANTIGEN AD Routine 06/19/2022 4:15 PM CDT Upper respiratory tract infection, unspecified type documented in this encounter Results * POCT GROUP A STREP SCREEN RAPID (06/19/2022 4:21 PM CDT) POC STREP SCRN Presumptive negative Invalid, Presumptive negative POC STREP SCREEN CONTROL Process Development Manager Pass 06/19/2022 4:21 PM CDT Amy Caraballo APRN, HAI POINT OF CARE TEST ING (MANUAL) Final Result * POCT SARS ANTIGEN AD (06/19/2022 4:15 PM CDT) POC SARS ANTIGEN AD Negative Negative POC SARS ANTIGEN AD CONTROL Process Development Manager Pass Swab NASAL STRUCTURE / Unknown 06/19/2022 4:15 PM CDT us Amy Caraballo APRN, HAI POINT OF CARE TEST ING (MANUAL) Final Result documented in this encounter Visit Diagnoses Diagnosis Upper respiratory tract infection, unspecified type- Primary documented in this encounter Care Teams Afternoon Nanny Relationship Specialty Start Date End Date Provider, None [place] PCP - General 05/01/22 01/05/24 documented as of this encounter
--- OUTSIDE RECORDS SUMMARY | 2024-03-24 10:38 | XMS_ITS | Clinical Summary ---
Author Organization [facility] Address [address] [place] [address] Phone Care Team Providers Care Tumbler Machine Operator Name Role Phone Gris Hamilton Primary Care Pro vider Allergies No known active allergies Medications Ferrous Sulfate (IRON PO) Take by mouth. Active Active Problems Problem Noted Date Diagnosed Date Left knee pain 01/06/2024 Encounters Date Type Department Care Team Description 01/06/2024 2:15 PM CDT Office Visit [facility] - Internal Medicine - [place] [address] [facility] [address] Gris Hamilton PAC Left knee pain, unspecified chronicity (Primary Dx); Well adult exam Discharge Disposition: Discharged to home or Selfcare 01/06/2024 Travel 01/03/2024 [facility]phone [facility] [address] [place] [id number] Provider, None New Patient from Last 3 Months Immunizations Immunization Administration Dates Next Due TDAP Vaccine 07/25/2022 Family History Relation Name Status Comments Father Alive Mother Alive Social History Tobacco Use Types Packs/Day Years Used Date Smoking Tobacco: Never Smokeless Tobacco: Never Tobacco Cessation:Counseling Given: No Alcohol Use Standard Drinks/Week Comments Not Currently 0 (1 standard drink = 0.6 oz pur e alcohol) [facility] Utilities Answer Date Recorded In the past 12 months has [employer], gas, oil, or water company threatened [...] often do you attend chur ch or episcopalian services? Never 01/06/2024 Do you belong to any clubs o r organizations such as rastafarian groups, unions, fraternal or athletic groups, or [...] Total Score - Questions 1-9 0 12/09 [facility] Answer Date Recorded [...] money to buy more. Never true 01/06/20 24 Within the past 12 months, t he [...] or rent on time? Patient declined 01/06/20 24 In the past 12 months, how m any times have you moved where you were living? 0 01/06/2024 At any time in the past 12 m [facility], were you homeless or living in a chcf (including now)? No 01/06/2024 Comments No Sex and Gender Information Value Date Recorded Sex Assigned at Not on file Legal Sex Female 6:00 PM WATCH INSPECTOR FINAL MOVEMENT Gender Identity Not on file Sexual Orientation [...] (140 lb) 01/06/2024 2:39 PM CDT Height 152.4 cm (5') 07/28/2022 5:23 PM CDT Body Mass Index 27.34 07/28/2022 5:23 PM CDT Plan of Treatment Health Maintenance Due Date Last Done Comments Hepatitis C Virus (HCV) Screening 2002 Hepatitis B Immunization (3 of 3 - 3-dose series) 07/13/2003 05/18/2003, 2002 Meningococcal B Immunization (1 of 2 - Patient Seeks Protection) 2018 Pap Smear 11/16/2023 Influenza Immunization (#1) 2023 01/11/2020 SARS-COV-2 Immunization (2023- season) 2023 Td Immunization Every 10 Years (Adults With 1 Tdap) 07/25/2032 07/25/2022, 01/08/2014 Respiratory Syncytial Virus (RSV) Immunization (Adult) (1 - 1-dose 75+ series) 2077 Human Papillomavirus (HPV) Immunization Completed 06/30/2014, 04/02/2014, 12/29/2013 DTaP/Tdap/Td Immunization Discontinued 2022, 01/08/2014, 10/29/2007, Additional history exists Meningococcal Immunization (ACWY) Aged Out No longer eligible based on patient's age to complete this topic Pneumococcal Immunization Combined Aged Out No longer eligible based on patient's age to complete this topic Rotavirus Immunization Aged Out No lo nger eligible based on patient's age to complete this topic Insurance MEDICAID [place] Care Teams Tumbler Machine Operator Relationship Specialty Start Date End Date Gris Hamilton, WALLY [address] [place] [address] PCP - General Physician Shop Cooper 01/06/24
--- OUTSIDE RECORDS SUMMARY | 2024-03-24 10:38 | XMS_ITS | Encounter Summary ---
Author Organization [facility] [employer] Care Team Providers Care Bag Printer Name Role Phone Provider, None Primary Care Provider Unavailabl e Encounter Details Date Type Department Care Team (Latest Contact Info) Description 06/19/2022 Travel Social History Tobacco Use Types Packs/Day Years Used Date Smoking Tobacco: Never Smokeless Tobacco: Never Comments No Sex and Gender Information Value Date Recorded Sex Assigned at Not on file Legal Sex Female 6:00 PM OPERATION SPECIALIST Gender Identity Not on file Sexual Orientation [...] filedocumented in this encounter Additional Health Concerns Infection Onset Date Last Indicated Resolved Time COVID - 19 06/19/2022 06/19/2022 06/29/2022 12:1 6 AM CDT documented as of this encounter Care Teams Bag Printer Relationship Specialty Start Date End Date Provider, None [place] PCP - General 05/01/22 01/05/24 documented as of this encounter
--- OUTSIDE RECORDS SUMMARY | 2024-03-24 10:38 | XMS_ITS | Encounter Summary ---
Author Organization [facility] Address [address] [address] Phone Care Team Providers Care Major Gifts Manager Name Role Phone Provider, None Primary Care Provider Unavailabl e Reason for Visit * Reason Comments Burn Encounter Details Date Type Department Care Team (Late st Contact Info) Description 07/25/2022 1:20 PM CDT - 07/25/2022 2:08 PM CDT Emergency [facility] [address] [place] [address] Shirley Hernandez, PAC [address] [place] [address] Second degree burn of hand Discharge Disposition: Discharged to home or Selfcare Social History Tobacco Use Types Packs/Day Years Used Date Smoking Tobacco: Never Smokeless Tobacco: Never Comments No Sex and Gender Information Value Date Recorded Sex Assigned at Not on file Legal Sex Female 6:00 PM SURGICAL TECHNOLOGY INSTRUCTOR Gender Identity Not on file Sexual Orientation Not on file COVID-19 Exposure Response Date Recorded In the last 10 days, have yo u been in contact with someone who was confirmed or suspected to have Coronavirus/COVID-19? No / Unsure 07/25/2022 1:15 PM CDT documented as of this encounter Last Filed Vital Signs Vital Sign Reading Time Taken Comments Blood Pressure 111/70 07/25/2022 1:18 PM CDT Pulse 87 07/25/2022 1:18 PM CDT Temperature 36.6 ??C (97.9 ??F) 07/25/2022 1:18 PM CD T Respiratory Rate 20 07/25/2022 1:18 PM CDT Oxygen Saturation 99% 07/25/2022 1:18 PM CDT Inhaled Oxygen Concentration - - Weight 63.5 kg (140 lb) 07/25/2022 1:18 PM CDT Height 152.4 cm (5') 07/25/2022 1:18 PM CDT Body Mass Index 27.34 07/25/2022 1:18 PM CDT documented in this encounter Discharge Instructions * Discharge Instructions* Shirley Hernandez PAC - 07/25/2022 2:00 PM CDT Please take tylenol or ibuprofen if needed for pain. Clean your wound with soap and water daily andapply silvadene twice daily for 7 days. Return for reevaluation if you have any further concerns. * Attachments The following attachments cannot be sent through Care Everywhere. * Burn Care Adult (Bahraini) documented in this encounter ED Notes * Krystle Lockhart RN - 07/25/2022 2:08 PM CDT Patient discharged. Discharge instructions and patient educational material reviewed with patient; questions and concerns addressed; patient verbalizes understanding, using teach back. Patient was given 0 prescriptions. Patient discharged per ambulatory mode with father as responsible constitution party. * Krystle Lockhart RN - 07/25/2022 2:03 PM CDT Pt medicated per provider orders. Pt educated on intended effects and side effects of medication and verbalized understanding, able to provide teach back of education. * Shirley Hernandez PAC - 07/25/2022 1:53 PM CDT Chief Complaint Patient presents with ??? Burn HPI Bandar Bonds is a 21 y.o. female who presents due to a burn to her L hand which occurred yesterday evening when she was working at [employer] in [place]. Patient states she was cleaning afryer when hot grease splashed up onto her hand. She states she has not had a tetanus shot in the past 5 years. She denies any numbness, drainage, or a fever. She denies any chance of . She states she is feeling well otherwise. Current Facility-Administered Medications Medication Dose Route Frequency Provider Last Rate Last Admin ??? silver sulfADIAZINE (SILVADENE) 1 % cream Topical Once Shirley Hernandez PAC ??? mlwxqfm-cgbhoclbhk-ctciliiow pertussis (BOOSTRIX) injection SUSP 0.5 mL 0.5 mL Intramuscular Once Shirley Hernandez PAC No current outpatient medications on file. No Known Allergies No past medical history on file. No past surgical history on file. Social [...] History Narrative ??? Not on file BP 111/70 Pulse 87 Temp 97.9 ??F (36.6 ??C) (Tympanic) Resp 20 Ht 5' (1.524 m) Wt 140 lb (63.5 kg) SpO2 99% BMI 27.34 kg/m?? Review of Systems Constitutional: Negative for chills and fever. HENT: Negative for congestion, ear pain, rhinorrhea and sore throat. Eyes: Negative for discharge. Respiratory: Negative for cough, chest tightness, shortness of breath and wheezing. Cardiovascular: Negative for chest pain and palpitations. Gastrointestinal: Negative for abdominal pain, diarrhea, nausea and vomiting. Genitourinary: Negative for difficulty urinating and menstrual problem. Musculoskeletal: Negative for arthralgias and myalgias. Skin: Positive for wound (L hand ). Negative for rash. Neurological: Negative for dizziness, syncope and headaches. All other systems reviewed and are negative. [...] There is no guarding or rebound. Musculoskeletal: General: Normal range of motion. Cervical back: Normal range of motion. Skin: General: Skin is warm and dry. Comments: L hand with a few small areas of erythema with a small vesicle. Neurological: Mental Status: She is alert and oriented to person, place, and time. Cranial Nerves: No cranial nerve deficit. Procedures Imaging Results None Labs Reviewed - No data to display MDM Clinical Impression 1. Second degree burn of hand Disposition: Discharged Tdap updated. Wound care instructions provided. Advised close monitoring of the wound and to seek medical attention if her symptoms change or worsen. Patient expressed understanding and agreement to the tx plan. Cosigned by Yves Shields MD at 08/15/2022 5:54 PM CDT Associated attestation - Yves Shields MD - 08/15/2022 5:54 PM CDT I was available for consultation but was not asked by the EMERGENCY ROOM DOCTOR/PA to evaluate this patient. I did not personally examine this patient. I defer to the attached note. I have the following additions/revisions: * Rocio Velasquez RN - 07/25/2022 1:19 PM CDT Presents to ED with complaints of martinez to left hand. States this happened last night at work. Was cleaning a fryer and grease splashed up on her burning her hand. documented in this encounter Plan of Treatment Not on file documented as of this encounter Visit Diagnoses Diagnosis Second degree burn of hand- Primary Blisters with epidermal loss due to burn (second degree) of unspecified site of hand documented in this encounter Administered Medications Inactive Administered Medications - up to 3 most recent administrations Medication Order MAR Action Action Date Dose Rate Site silver sulfADIAZINE (SILVADENE) 1 % cream Topical, ONCE, 1 dose, On Sat07/25/22 at 1400, Application Site: L hand Given 07/25/2022 2:03 PM CDT Other (See comment) documented in this encounter Active and Recently Administered Medications Times are shown in CDT. Scheduled Medication Order 07/23/2022 07/24/2022 07/25/2022 silver sulfADIAZINE (SILVADENE) 1 % cream (COMPLETED) Topical, ONCE, 1 dose, On Sat07/25/22 at 1400, Application Site: L hand 1403 (Given - Provid er: Krystle Lockhart RN - Comment: left hand) documented in this encounter Care Teams Major Gifts Manager Relationship Specialty Start Date End Date Provider, None [place] PCP - General 05/01/22 01/05/24 documented as of this encounter
--- OUTSIDE RECORDS SUMMARY | 2024-03-24 10:38 | XMS_ITS | Encounter Summary ---
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
== END 2024-03-20 18:33 | disposition home or self-care (01) ==
PROVIDERS: Emergency Provider Registered Nurse
DX: J01.40 Acute pansinusitis, unspecified (principal); R05.1 Acute cough
CPT/HCPCS: 99213; G0463

== ENCOUNTER 2024-08-12 12:24 | Emergency (ER) | payer OTHER, SELFPAY ==
[2024-08-12 12:30] VITALS: BP 105/70; PULSE 87; RESP 20; TEMP 36.8; O2SAT 100
--- OUTSIDE RECORDS SUMMARY | 2024-08-12 12:34 | XMS_ITS | Clinical Summary ---
Author Organization [facility] Address [address] [place] [address] Phone Care Team Providers Care Gas Station Supervisor Name Role Phone Gris Hamilton PAC Primary Care Pro vider Allergies No known active allergies Medications Ferrous Sulfate (IRON PO) Take by mouth. Active Active Problems Problem Noted Date Diagnosed Date Left knee pain 01/06/2024 Immunizations Immunization Administration Dates Next Due TDAP Vaccine 07/25/2022 Family History Relation Name Status Comments Father Alive Mother Alive Social History Tobacco Use Types Packs/Day Years Used Date Smoking Tobacco: Never Smokeless Tobacco: Never Tobacco Cessation:Counseling Given: No Alcohol Use Standard Drinks/Week Comments Not Currently 0 (1 standard drink = 0.6 oz pur e alcohol) [facility] Utilities Answer Date Recorded In the past 12 months has [employer], gas, oil, or water company threatened to [...] often do you attend chur ch or yarsani services? Never 01/06/2024 Do you belong to any clubs o r organizations such as jew groups, unions, fraternal or athletic groups, or [...] Total Score - Questions 1-9 0 12/09 [facility] - Occupational [...] any time in the past 12 m [facility], were you homeless or living in a jail (including now)? 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 Gender Identity Not on file Sexual Orientation Not on file Last Filed Vital Signs Vital Sign Reading Time Taken Comments Blood Pressure 104/70 01/06/2024 2:39 PM CDT Pulse 88 01/06/2024 2:39 PM CDT Temperature 36.6 C (97.8 F) 01/06/2024 2:39 PM CDT Respiratory Rate 12 01/06/2024 2:39 PM CDT [...] Meningococcal B Immunization (1 of 2 - Standard) 2018 Pap Smear 11/16/2023 SARS-COV-2 Immunization ( season) 2023 Influenza Immunization (Season Ended) 2024 01/11/2020 Td Immunization Every 10 Years (Adults With [...] to complete this topic Insurance MEDICAID [place] [facility] Care Teams Gas Station Supervisor Relationship Specialty Start Date End Date Gris Hamilton PAC [address] [place] [address] PCP - General Physician Director Product Development 01/06/24
--- OUTSIDE RECORDS SUMMARY | 2024-08-12 12:34 | XMS_ITS | Clinical Summary ---
Author Organization [facility] [address] Address [address] [place] [address] Phone Care Team Providers Care Apparel Manager Name Role Phone No, Physician Primary Care Provider [phone] Allergies No known active allergies Medications silver [...] 91 07/27/2022 1:09 PM CDT Temperature 36.4 C (97.5 F) 07/27/2022 1:09 PM CDT Respiratory Rate 16 07/27/2022 1:09 PM CDT [...] B Vaccine (1 o f 2 - Standard) 2018 Hepatitis B Screening 2020 Depression Screening 07/28/2023 07/27/2022 Regular Well Visit/Exam 18-64 07/28/2023 07/27/2022 Influenza Vaccine (Season Ended) 2024 DTaP/Tdap/Td Vaccine (2 - Td or Tdap) 07/25/2032 07/25/2022 Meningococcal Vaccine Aged Out No johanna jamil eligible based on patient's age to complete this topic Pneumococcal vaccine <65 Aged Out No longer eligible based on patient's age to complete this topic Insurance [facility] Care Teams Apparel Manager Relationship Specialty Start Date End Date No, Physician PCP - General 06/19/22
--- OUTSIDE RECORDS SUMMARY | 2024-08-12 12:34 | XMS_ITS | Referral Summary ---
Author Organization [facility] [address] Address [address] [place] [address] Phone Care Team Providers Care Budget Manager Name Role Phone No, Physician Primary Care Provider [phone] Allergies No known active allergies Medications silver [...] Treatment Not on file Insurance [facility] Care Teams Budget Manager Relationship Specialty Start Date End Date No, Physician PCP - General 06/19/22
--- NOTE | 2024-08-12 12:44 | ED_ITS ---
HPI - Ear Problem General Chief complaint: Ear Stated complaint: runny nose/right ear pain Time Seen by Provider: 08/12/24 12:35 Source: patient and RN notes reviewed Mode of arrival: ambulatory Limitations: no limitations History of Present Illness HPI Narrative: 23-year-old female who presents Express Care complaining of upper respiratory symptoms for 2 days. Patient reports having congestion started yesterday and today she started having right ear pain. 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 Patient denies any sore throat, fevers, body aches, chills, cough, nausea, vomiting, diarrhea, chest pain, shortness of breath. Patient denies swimming recently. Patient denies any significant past medical history. Related Data Allergies Allergy/AdvReac Type Severity Reaction Status Date / Time No Known Allergies Allergy Verified 08/12/24 12:36 Review of Systems Review of Systems: CONSTITUTIONAL: Denies fever, chills, body aches, or sweats. EYES: Denies visual changes, redness, or discharge. ENT: Denies rhinorrhea, sore throat. Positive for congestion and otalgia. CARDIOVASCULAR: Denies chest pain, palpitations, or edema. RESPIRATORY: Denies cough or dyspnea. GASTROINTESTINAL: Denies abdominal pain, nausea, vomiting, or diarrhea. GENITOURINARY: Denies dysuria or hematuria. SKIN: Denies rash or itching. MUSCULOSKELETAL: Denies back pain, joint pain, or myalgia. NEUROLOGIC: Denies headache, numbness, or weakness. PSYCHIATRIC: Denies anxiety or depression. All other systems reviewed are negative, except as documented in HPI. 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 There is no relevant family history pertinent to the patient complaint. Exam Narrative: GENERAL: This is a well-nourished, well-developed adult, in no apparent distr ess. They are non ill-appearing, nontoxic appearing. HEAD: normocephalic, atraumatic. EYES: Sclera clear/white. Conjunctiva normal. Vision is grossly intact. Extraocular movements intact EARS: External ears normal, auditory canals clear and without drainage, left TM normal without perforation. Right TM erythematous, bulging, without perforation. Hearing grossly intact. NOSE: External nose normal with no obvious nasal discharge, nasal turbinates erythematous bilaterally, no rhinorrhea. THROAT: Mucous membranes moist, posterior pharynx without erythema or swelling. Postnasal drip present. Uvula midline. NECK: Neck supple, non-tender without lymphadenopathy, masses or thyromegaly. CARDIOVASCULAR: Regular rate and rhythm without murmurs, gallops, or rubs. RESPIRATORY: Clear to auscultation. Breath sounds equal bilaterally. No wheezes, rales, or rhonchi. SKIN: warm, Dry, intact with no suspicious lesions or rash, good texture and turgor. NEURO: awake, alert, and oriented to person, place and time. There were no obvious focal neurologic abnormalities. EXTREMITIES: No joint tenderness, effusion, or edema noted. BACK: Nontender without deformity. Course Course Emergency Course: Portions of this record may have been created with voice recognition software Level of Care: Express Care Visit Vital Signs Vital signs: Vital Signs Temperature 98.2 F 08/12/24 12:30 Pulse Rate 87 08/12/24 12:30 Respiratory Rate 20 08/12/24 12:30 Blood Pressure 105/70 08/12/24 12:30 Pulse Oximetry 100 08/12/24 12:30 Oxygen Delivery Room Air 08/12/24 12:30 Temperature 98.2 F 08/12/24 12:30 Pulse Rate 87 08/12/24 12:30 Respiratory Rate 20 08/12/24 12:30 Blood Pressure 105/70 08/12/24 12:30 Pulse Oximetry 100 08/12/24 12:30 Oxygen Delivery Room Air 08/12/24 12:30 Reviewed Medical Decision Making MDM Narrative Medical decision making narrative: Patient has symptoms consistent with otitis media. Right TM remains intact. Patient may have underlying upper respiratory infection as well. Will treat empirically with amoxicillin. Discussed physical exam findings. Advised supportive measures and signs/symptoms to go to the ER. Pt is appropriate for outpt treatment and f/u. Differential Diagnosis Differential Diagnosis: Otitis media, upper respiratory infection, otitis externa. Vital Signs Vital Signs: Vital Signs Temperature 98.2 F 08/12/24 12:30 Pulse Rate 87 08/12/24 12:30 Respiratory Rate 20 08/12/24 12:30 Blood Pressure 105/70 08/12/24 12:30 Pulse Oximetry 100 08/12/24 12:30 Oxygen Delivery Room Air 08/12/24 12:30 Temperature 98.2 F 08/12/24 12:30 Pulse Rate 87 08/12/24 12:30 Respiratory Rate 20 08/12/24 12:30 Blood Pressure 105/70 08/12/24 12:30 Pulse Oximetry 100 08/12/24 12:30 Oxygen Delivery Room Air 08/12/24 12:30 Critical Care Time Critical Care Time Critical Care Time: No Discharge Plan Discharge Clinical Impression: Otitis media Patient Disposition: Home Condition: Stable Instructions: Antibiotic Form, Ear Infection (ED) Additional Instructions: Take antibiotics as directed. Recommend antihistamine such as Benadryl, Zyrtec or Gail for sinus congestion Flonase nasal spray, 2 spray in each nostril once daily until symptoms improve Symptomatic treatment includes: rest, fluids, and increase humidity of the air at home. Tylenol 1000mg every 8 hours as needed to reduce fever, pain Please schedule a follow-up visit with your personal physician for further evaluation and treatment within 3-5days. If your symptoms persist, change or worsen significantly, go to the emergency department for further evaluation. Patient Language: Mongolian Prescriptions: New amoxicillin 875 mg tablet 875 mg PO Q12H 7 Days Qty: 14 0RF Follow-up/Referrals: PHYSICIAN,SIDE DOOR WORKER [Primary Care Provider] - Time of Disposition: 12:43
== END 2024-08-12 12:47 | disposition home or self-care (01) ==
DX: H66.91 Otitis media, unspecified, right ear (principal)
CPT/HCPCS: 99213; G0463

== ENCOUNTER 2024-10-21 15:57 | Emergency (ER) | payer OTHER, SELFPAY ==
--- OUTSIDE RECORDS SUMMARY | 2024-10-21 15:59 | XMS_ITS | Clinical Summary ---
Author Organization [facility] [address] Address [address] [place] [address] Phone Care Team Providers Care Jboss Architect Name Role Phone No, Physician Primary Care Provider [phone] Allergies No known active allergies Medications silver [...] P M CDT Height 160 cm (5' 3) 07/27/2022 1:09 PM CDT Body Mass Index [...] age to complete this topic Insurance [facility] Care Teams Jboss Architect Relationship Specialty Start Date End Date No, Physician PCP - General 06/19/22
--- OUTSIDE RECORDS SUMMARY | 2024-10-21 15:59 | XMS_ITS | Clinical Summary ---
Author Organization [facility] Address [address] [place] [address] Phone Care Team Providers Care Senior Software Analyst Name Role Phone Gris Hamilton PAC Primary [...] drink = 0.6 oz pur e alcohol) [facility] Utilities Answer Date Recorded In the past 12 months has [employer] electric, gas, oil, or water company threatened to shut off services in your home? No 01/06/2024 Social Connection and Isolation Panel Answer Date Recorded In a typical week, how many times do you talk on the phone with family, friends, or neighbors? Once a week 01/06/2024 How often do you get togethe r with friends or relatives? More than three times a week 01/06/2024 How often do you attend chur ch or hindu services? Never 01/06/2024 Do you belong to any clubs o r organizations such as jainism groups, unions, fraternal or athletic groups, or [...] Total Score - Questions 1-9 0 12/09 [facility] - [...] any time in the past 12 m [facility], were you homeless or living in a retirement (including now)? 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
--- OUTSIDE RECORDS SUMMARY | 2024-10-21 15:59 | XMS_ITS | Referral Summary ---
Author Organization [facility] [address] Address [address] [place] [address] Phone Care Team Providers Care Sorter Operator Name Role Phone No, Physician Primary Care Provider [phone] Allergies No known active allergies Medications silver [...] Plan of Treatment Not on file Insurance [facility] Care Teams Sorter Operator Relationship Specialty Start Date End Date No, Physician PCP - General 06/19/22
[2024-10-21 16:03] VITALS: BP 116/75; PULSE 90; RESP 16; TEMP 36.8; O2SAT 100
--- NOTE | 2024-10-21 16:08 | ED_ITS ---
HPI - URI/Sore Throat General Chief Complaint: Upper Respiratory Infection Stated Complaint: Sore Throat Time Seen by Provider: 10/21/24 16:08 Source: patient Mode of arrival: ambulatory Limitations: no limitations History of Present Illness HPI Narrative: 23 yo female presents with complaint of right ear pain, sore throat, cough, postnasal drainage, hoarse voice for 2 days. Afebrile. not taking any eyne-lzy-dlquxid medications to treat symptoms. Reports right ear pressure, no change to hearing. All systems reviewed and negative except as noted above. Related Data Allergies Allergy/AdvReac Type Severity Reaction Status Date / Time No Known Allergies Allergy Verified 10/21/24 16:11 Review of Systems Review of Systems: CONSTITUTIONAL: Denies fever, chills, or sweats. EYES: Denies visual changes, redness, or discharge. ENT: Reports rhinorrhea, congestion, sore throat, right ear pain CARDIOVASCULAR: Denies chest pain, palpitations, or edema. RESPIRATORY: reports cough. Denies dyspnea. GASTROINTESTINAL: Denies abdominal pain, nausea, vomiting, or diarrhea. GENITOURINARY: Denies dysuria or hematuria. SKIN: Denies rash or itching. MUSCULOSKELETAL: Denies back pain, joint pain, or myalgia. NEUROLOGIC: Denies headache, numbness, or weakness. PSYCHIATRIC: Denies anxiety or depression. All other systems reviewed are negative, except as documented in HPI. 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 There is no relevant family history pertinent to the presenting complaint. Exam Narrative: GENERAL: This is a well-nourished, well-developed patient, in no apparent dist ress. HEAD: normocephalic, atraumatic. EYES: PERRL. Sclera clear/white. Vision is grossly intact. EARS: External ears normal, auditory canals clear and without drainage, fluid to right TM, erythematous, slightly bulging. Left TM normal. No perforation bilaterally. NOSE: External nose normal with Clear nasal drainage THROAT: Mucous membranes moist, clear nasal drainage with mild erythema. No swelling or exudates. Voice is hoarse NECK: Neck supple, non-tender without lymphadenopathy, masses or thyromegaly. CARDIOVASCULAR: Regular rate and rhythm without murmurs, gallops, or rubs. RESPIRATORY: Clear to auscultation. Breath sounds equal bilaterally. No wheezes, rales, or rhonchi. SKIN: warm, Dry, intact with no suspicious lesions or rash, good texture and turgor. NEURO: awake, alert, and oriented to person, place and time. There were no obvious focal neurologic abnormalities. EXTREMITIES: No joint tenderness, effusion, or edema noted. Course Course Level of Care: Express Care Visit Vital Signs Vital signs: reviewed MDM - URI/Sore Throat MDM Narrative Medical decision making narrative: strep test negative. Strep culture ordered. Will treat patient with amoxicillin for right serous otitis media. Patient is alert, nontoxic. Okay for outpatient therapy. Differential Diagnosis Differential diagnosis: Likely upper respiratory infection, otitis media, sinusitis, viral infection and pharyngitis Discharge Plan Discharge Clinical Impression: Acute serous otitis media of right ear, Laryngitis Patient Disposition: Home Condition: Stable Instructions: Antibiotic Form, Fluid In The Ear (Serous Otitis Media) (ED) Additional Instructions: your strep test was negative today. Take medications as prescribed. Take a daily antihistamine such as Claritin or Zyrtec. Drink at least 64 oz of water a day. Rest your voice. See your doctor symptoms are not improving. Patient Language: Lithuanian Prescriptions: New benzonatate 200 mg capsule 200 mg PO TID PRN (Reason: cough) Qty: 20 0RF amoxicillin 875 mg tablet 875 mg PO Q12H 10 Days Qty: 20 0RF methylprednisolone [Medrol (Anand)] 4 mg tablets,dose pack See Rx Instructions PO .COMPLEX Qty: 21 0RF Rx Instructions: orally per package directions Follow-up/Referrals: PHYSICIAN,LAY OUT MACHINE OPERATOR [Primary Care Provider] - Stand Alone Forms: Work/School Release IP Time of Disposition: 16:42
[2024-10-21 16:18] LABS: EDSTREPNEGPOS1 Negative (Negative)
== END 2024-10-21 16:48 | disposition home or self-care (01) ==
PROVIDERS: Emergency Provider Nurse Practitioner Family
DX: H65.01 Acute serous otitis media, right ear (principal); J04.0 Acute laryngitis
CPT/HCPCS: 87081; 87880; 99213; G0463